=== PATIENT | male | born 1980 | race Two or more races ===

== ENCOUNTER 2021-11-26 22:10 | Emergency (ER) | payer SELFPAY ==
[~2021-11-26] VITALS: Ht 172.7 cm; Wt 90.9 kg
[2021-11-26 22:49] VITALS: BP 118/78
== END 2021-11-27 08:19 | disposition home or self-care (01) ==
LOC: ER 22:10 → EDBD 22:10 → ER 11-27 08:19
DX: M25.562 Pain in left knee (principal); M25.561 Pain in right knee; R51.9 Headache, unspecified; M54.9 Dorsalgia, unspecified; V89.2XXA Person injured in unspecified motor-vehicle accident, traffic, initial encounter; Y93.89 Activity, other specified; Y92.89 Other specified places as the place of occurrence of the external cause; Y99.8 Other external cause status
CPT/HCPCS: 70450; 71045; 73030